=== PATIENT | female | born 1990 | race Hispanic/Latino ===

== ENCOUNTER 2022-08-18 20:58 | Emergency (ER) | payer MEDICAID ==
[~2022-08-18] VITALS: Ht 165.1 cm; Wt 64.0 kg
[2022-08-18 21:53] LABS: BASOPHILS % (AUTO) 0.7 % (0.0-5.0); LYMPHOCYTES % (AUTO) 16.1 % (21.0-51.0); MEAN CORPUSCULAR HEMOGLOBIN 28.7 pg (27.0-33.0); MEAN CORPUSCULAR HGB CONC 32.9 g/dL (32.0-36.0); MEAN CORPUSCULAR VOLUME 87.2 fL (79-99); MONOCYTES % (AUTO) 8.3 % (3.0-13.0); NEUTROPHILS % (AUTO) 68.6 % (40.0-77.0); PLATELET COUNT (AUTO) 223 K/uL (130-400); RED BLOOD CELL COUNT(AUTO) 4.36 MIL/uL (4.00-5.50); RED CELL DISTRIBUTION WIDTH 13.3 % (11.0-15.5); WHITE BLOOD COUNT (AUTO) 7.4 K/uL (4.8-10.8)
[2022-08-18 22:03] LABS: CREATININE 0.9 mg/dL (0.5-1.5); POTASSIUM 3.3 mmol/L (3.5-5.1)
[2022-08-18 22:04] LABS: INR 0.96 (0.85-1.15); PROTHROMBIN TIME 10.5 SEC (9.6-11.6)
[2022-08-18 22:05] LABS: PARTIAL THROMBOPLASTIN TIME 28.2 SEC (26.3-35.5)
[2022-08-18 22:08] LABS: ALBUMIN 3.9 g/dL (3.5-5.0); MAGNESIUM 1.8 mg/dL (1.80-2.40)
[2022-08-18] MEDS ORDERED: 0.9%NACL 1000ML 2,000 ML IV ONE (22:30)
[2022-08-18] MEDS ORDERED: IOHEXOL 350 MG/ML 100ML INFUS..BTL IV ONE (23:41)
[2022-08-19] MEDS ORDERED: LACTATED RINGERS 1000ML 1,000 ML IV ONE
[2022-08-19 03:01] VITALS: BP 113/80
== END 2022-08-19 03:20 ==
LOC: EDH 20:58
DX: E86.0 Dehydration (principal); I95.9 Hypotension, unspecified
CPT/HCPCS: 99285; 96360; 71275; 71045; 82550; 83735; 84484; 80053; 84703; 85025; 85378; 85610; 85730; 87040 ×2; 83605; 36415 ×2; 93005; 96361; J7030; Q9967; J7120

== ENCOUNTER 2024-01-05 05:21 | Emergency (ER) | payer SELFPAY ==
[~2024-01-05] VITALS: Ht 162.6 cm; Wt 63.5 kg
[2024-01-05 05:40] LABS: BASOPHILS # (AUTO) 0.06 K/uL (0.00-0.20); BASOPHILS % (AUTO) 0.6 % (0.0-5.0); EOSINOPHILS # (AUTO) 0.19 K/uL (0.00-0.70); HEMATOCRIT 38.2 % (36-48); IMMATURE GRANULOCYTE ABSOLUTE 0.04 K/uL (0-1); LYMPHOCYTES # (AUTO) 2.1 K/uL (1.0-4.8); LYMPHOCYTES % (AUTO) 22.1 % (21.0-51.0); MEAN CORPUSCULAR HEMOGLOBIN 26.3 pg (27.0-33.0); MEAN CORPUSCULAR HGB CONC 31.9 g/dL (32.0-36.0); MEAN CORPUSCULAR VOLUME 82.5 fL (79-99); MONOCYTES # (AUTO) 0.3 K/uL (0.1-1.0); MONOCYTES % (AUTO) 3.6 % (3.0-13.0); NEUTROPHILS # (AUTO) 6.7 K/uL (1.8-7.7); NEUTROPHILS % (AUTO) 71.3 % (40.0-77.0); PLATELET COUNT (AUTO) 324 K/uL (130-400); RED BLOOD CELL COUNT(AUTO) 4.63 MIL/uL (4.00-5.50); RED CELL DISTRIBUTION WIDTH 13.9 % (11.0-15.5); WHITE BLOOD COUNT (AUTO) 9.5 K/uL (4.8-10.8)
[2024-01-05 05:43] LABS: APPEARANCE,URINE CLEAR (CLEAR); BILIRUBIN,URINE NEGATIVE (NEGATIVE); COLOR,URINE COLORLESS (YELLOW); GLUCOSE, URINE (UA) NEGATIVE (NEGATIVE); KETONES,URINE NEGATIVE (NEGATIVE); LEUKOCYTE ESTERASE ,URINE 25 Leu/uL (NEGATIVE); NITRATE,URINE NEGATIVE (NEGATIVE); OCCULT BLOOD,URINE NEGATIVE (NEGATIVE); PH,URINE 5.5 (5.0-8.0); PROTEIN,URINE NEGATIVE (NEGATIVE); UROBILINOGEN,URINE 0.2 mg/dL (0.2-1.0)
[2024-01-05 05:47] LABS: ADD UA MICROSCOPIC YES
[2024-01-05 05:48] LABS: BACTERIA,URINE FEW /HPF (None Seen); MUCUS,URINE RARE LPF (None Seen); RBC,URINE 0-1 /HPF (0-1); SQUAMOUS EPITHELIAL CELL,UR RARE /HPF (0-2)
[2024-01-05 05:49] LABS: CARBON DIOXIDE 26 mmol/L (21-32); CHLORIDE 105 mmol/L (101-111); CREATININE 0.7 mg/dL (0.5-1.0); GLOMERULAR FILTR. RATE CALC 119 mL/min (>90); GLUCOSE,RANDOM 102 mg/dL (70-105); POTASSIUM 4.3 mmol/L (3.5-5.1); SODIUM SERUM 140 mmol/L (136-145); UREA NITROGEN, BLOOD 9 mg/dL (7-18)
[2024-01-05 05:51] LABS: AMPHET/METH SCREEN,URINE NEGATIVE (NEGATIVE); BARBITURATE SCREEN, URINE NEGATIVE (NEGATIVE); BENZODIAZEPINES SCREEN,URINE NEGATIVE (NEGATIVE); CANNABINOID SCREEN,URINE NEGATIVE (NEGATIVE); COCAINE SCREEN,URINE POSITIVE (NEGATIVE); OPIATE SCREEN,URINE NEGATIVE (NEGATIVE); PHENCYCLIDINE SCREEN,URINE NEGATIVE (NEGATIVE)
[2024-01-05 05:53] LABS: ALCOHOL, BLOOD 268 mg/dL (0-10)
[2024-01-05 05:54] LABS: ACETAMINOPHEN < 1 mcg/mL (10-30); SALICYLATE < 2.8 mg/dL (2.8-20.0)
[2024-01-05 19:21] VITALS: BP 127/78; PULSE 80; RESP 16; TEMP 98.2; O2SAT 100
== END 2024-01-05 20:25 | disposition home or self-care (01) ==
LOC: EDH 05:21
DX: F10.129 Alcohol abuse with intoxication, unspecified (principal); F14.10 Cocaine abuse, uncomplicated; R45.851 Suicidal ideations; Z79.899 Other long term (current) drug therapy
CPT/HCPCS: 99285; 80048; 80305; 85025; 36415; 81001; G0481

== ENCOUNTER 2024-07-01 21:59 | Emergency (ER) | payer OTHER ==
[~2024-07-01] VITALS: Ht 167.6 cm; Wt 61.2 kg
[2024-07-01] MEDS: 0.9%NACL 1000ML 1,000 ML IV ONE (22:46)
[2024-07-01 22:56] LABS: BASOPHILS # (AUTO) 0.06 K/uL (0.00-0.20); BASOPHILS % (AUTO) 0.7 % (0.0-5.0); EOSINOPHILS # (AUTO) 0.04 K/uL (0.00-0.70); EOSINOPHILS % (AUTO) 0.5 % (0.0-8.0); HEMATOCRIT 35.2 % (36-48); IMMATURE GRANULOCYTE ABSOLUTE 0.03 K/uL (0-1); LYMPHOCYTES # (AUTO) 2.1 K/uL (1.0-4.8); LYMPHOCYTES % (AUTO) 25.6 % (21.0-51.0); MEAN CORPUSCULAR HEMOGLOBIN 27.1 pg (27.0-33.0); MEAN CORPUSCULAR HGB CONC 32.4 g/dL (32.0-36.0); MEAN CORPUSCULAR VOLUME 83.8 fL (79-99); MONOCYTES # (AUTO) 0.5 K/uL (0.1-1.0); MONOCYTES % (AUTO) 5.7 % (3.0-13.0); NEUTROPHILS # (AUTO) 5.4 K/uL (1.8-7.7); NEUTROPHILS % (AUTO) 67.1 % (40.0-77.0); PLATELET COUNT (AUTO) 288 K/uL (130-400); RED CELL DISTRIBUTION WIDTH 14.1 % (11.0-15.5); WHITE BLOOD COUNT (AUTO) 8.1 K/uL (4.8-10.8)
[2024-07-01 23:00] VITALS: BP 120/67; PULSE 117; RESP 20; TEMP 98.5; O2SAT 98
[2024-07-01 23:11] LABS: CARBON DIOXIDE 29 mmol/L (21-32); CHLORIDE 101 mmol/L (101-111); CREATININE 0.6 mg/dL (0.5-1.0); GLOMERULAR FILTR. RATE CALC 122 mL/min (>90); GLUCOSE,RANDOM 112 mg/dL (70-105); POTASSIUM 3.2 mmol/L (3.5-5.1); SODIUM SERUM 138 mmol/L (136-145); UREA NITROGEN, BLOOD 7 mg/dL (7-18)
[2024-07-01 23:17] LABS: ALCOHOL, BLOOD 309 mg/dL (0-10); CREATINE KINASE, TOTAL 208 U/L (21-232)
[2024-07-01 23:20] LABS: ACETAMINOPHEN < 1 mcg/mL (10-30); SALICYLATE < 2.8 mg/dL (2.8-20.0)
--- NOTE | 2024-07-01 23:39 | NUR ---
PATIENT VOICED WANTING TO LEAVE AGAINST MEDICAL ADVICE, ATTEMPTED TO EXPLAIN THE PROCESS AND PLAN OF CARE. PATIENT STATED, "I DON'T WANT TO BE HERE ANYMORE, THE IV FLUIDS FINISHED, I WANT TO GO HOME WITH MY BROTHER THAT IS HERE WAITING FOR ME. I AM A GROWN ADULT AND CAN MAKE MY OWN DECISIONS." PIV REMOVED AND AMA FORM SIGNED AT THIS TIME. ED CLOTHING CUTTER AND ED CHARGE MADE AWARE AT THIS TIME./MIKA
--- NOTE | 2024-07-01 23:51 | NUR ---
[facility] MADE AWARE AT THIS TIME OF PATIENT LEAVING./IMKA
--- NOTE | 2024-07-02 01:20 | ERN ---
ED Note History of Present Illness Stated Complaint: SUICIDAL IDEATION Chief Complaint: Suicidal Ideation Time Seen by MD: 22:14 Time Seen by Midlevel: 22:14 Dictation: The patient is a 34-year-old female with no past medical history who presents to the emergency department via EMS for psychiatric evaluation. Patient reports she did a bump of cocaine for the 1st time in a long time. Reports she is seeking help for drug addiction. Patient currently denies any suicidal or homicidal ideations. Denies ever having suicidal or homicidal ideations. Patient reports that occasionally she wakes up and hears music but denies any other type of hallucinations. Patient currently denies any chest pain, abdominal pain, nausea or vomiting. Denies fevers. Patient has no other complaints. Allergies: Coded Allergies: No Known Drug Allergies (Verified Allergy, Unknown, 10/29/13) Past Medical History Past Medical History: Anxiety, Bipolar Surgical History: Unknown Social History: Other RN Note Reviewed/Agreed w/PFSH: Yes Review of System Dictation Constitutional: Negative for fever,chills, and weight loss Eyes: Negative for injury, pain,redness, and discharge ENT: Negative for injury,pain or swelling Cardiovascular: Negative for chest pain, palpitations, and edema Respiratory: Negative for shortness of breath, cough, and wheezing, Abdomen/GI: Negative for abdominal pain, nausea, vomiting, diarrhea, and constipation Back: Negative for injury and pain : Negative for injury, bleeding and discharge MS/Extremity: Negative for injury and deformity Skin: Negative for rash, and discoloration Neuro: Negative for headache, weakness, numbness, tingling, and seizure Psych: Negative for suicide ideation, homicidal ideation, positive for hallucinations Initial Vital Sign VS Vital Signs Date Time Temp Pulse Resp B/P (MAP) Pulse Ox O2 Delivery O2 Flow Rate FiO2 07/01/24 22:08 99.0 122 22 112/56 98 Room Air 0 07/01/24 22:12 21 Physical Exam Dictation Vital Signs reviewed General Appearance: Alert, oriented x 3, no acute distress, well developed, nourished. Head and Face: non-traumatic. Eyes: PERRL, pink conjunctivas, eyelid no trauma, anterior chamber with arcus senilis. Ears: Pinnas intact and no signs of trauma or erythema ear canals clear and no discharge TM no erythema Nose: No discharge, no bleeding. Oropharynx: Mouth normal, tongue pink. pharynx clear,no erythema, tonsils no exudates, no abscesses noted, mucous membrane moist Neck: Supple, non-tender, no thyromegaly, no masses, no JVD, no bruits Breast:Deferred Chest:No tenderness, no crepitus, no paradoxical movement, no retractions Lungs:Clear, well-ventilated, symmetric, no rales, no wheezing, no rhonchi, no stridor, good breath sounds bilaterally Heart: Regular rate, regular rhythm, no murmur, no gallops Vascular: no peripheral edema, Abdomen: Soft, positive bowel sounds, nondistended, no guarding, nontender, no rebound, no masses no hepatomegaly, no splenomegaly, no Alvarado's sign, no hernias. Rectal: Deferred Genital: Deferred Neurological: Normal speech, motor function intact, sensory function intact Musculoskeletal: Neck nontender, full range of motion, back nontender, full range of motion, Extremities: nontender, full range of motion Skin: Color pink, dry, no turgor, no rash, no lacerations, no abrasions, no contusions. Lymphatic: Deferred Results (Laboratory/Radiology) Laboratory/Radiology Laboratory Tests Test 07/01/24 22:46 White Blood Count 8.1 K/uL (4.8-10.8) Red Blood Count 4.20 MIL/uL (4.00-5.50) Hemoglobin 11.4 g/dL (12.0-16.0) L Hematocrit 35.2 % (36-48) L Mean Corpuscular Volume 83.8 fL (79-99) Mean Corpuscular Hemoglobin 27.1 pg (27.0-33.0) Mean Corpuscular Hemoglobin Concent 32.4 g/dL (32.0-36.0) Red Cell Distribution Width 14.1 % (11.0-15.5) Platelet Count 288 K/uL (130-400) Mean Platelet Volume 8.7 fL (7.5-10.5) Immature Granulocyte % (Auto) 0.4 % (0-1) Neutrophils (%) (Auto) 67.1 % (40.0-77.0) Lymphocytes (%) (Auto) 25.6 % (21.0-51.0) Monocytes (%) (Auto) 5.7 % (3.0-13.0) Eosinophils (%) (Auto) 0.5 % (0.0-8.0) Basophils (%) (Auto) 0.7 % (0.0-5.0) Neutrophils # (Auto) 5.4 K/uL (1.8-7.7) Lymphocytes # (Auto) 2.1 K/uL (1.0-4.8) Monocytes # (Auto) 0.5 K/uL (0.1-1.0) Eosinophils # (Auto) 0.04 K/uL (0.00-0.70) Basophils # (Auto) 0.06 K/uL (0.00-0.20) Absolute Immature Granulocyte (auto 0.03 K/uL (0-1) Nucleated Red Blood Cells 0.0 % (0.0-0.19) Sodium Level 138 mmol/L (136-145) Potassium Level 3.2 mmol/L (3.5-5.1) L Chloride Level 101 mmol/L (101-111) Carbon Dioxide Level 29 mmol/L (21-32) Blood Urea Nitrogen 7 mg/dL (7-18) Creatinine 0.6 mg/dL (0.5-1.0) Glomerular Filtration Rate Calc 122 mL/min (>90) Random Glucose 112 mg/dL (70-105) H Total Calcium 8.3 mg/dL (8.5-10.1) L Total Creatine Kinase 208 U/L (21-232) # Troponin I High Sensitivity < 4 ng/L (4-50) L Serum Test, Qualitative NEGATIVE (NEGATIVE) Salicylates Level < 2.8 mg/dL (2.8-20.0) L Acetaminophen Level < 1 mcg/mL (10-30) L Serum Alcohol 309 mg/dL (0-10) H Labs Reviewed?: Yes EKG: (+) rhythm (Sinus rhythm) EKG Comment: Date:07/01/2024 Time:2250 Ventricular rate:95 SC interval:143 QRS duration:95 QT/QTc:372 EKG interpretation: Sinus rhythm Reviewed by ED Attending no STEMI ED Course ED Course Orders Procedure Category Date Status Time Cbc With Differential LAB 07/01/24 Complete 22:30 Alcohol, Blood LAB 07/01/24 Complete 22:30 Salicylate LAB 07/01/24 Complete 22:30 Acetaminophen LAB 07/01/24 Complete 22:30 Testing, LAB 07/01/24 Complete Serum Hcg 22:30 12 Lead Ekg Tracing- EKG 07/01/24 Logged Technical 22:30 Creatine Kinase, Total LAB 07/01/24 Complete 22:30 Basic Metabolic Panel LAB 07/01/24 Complete 22:30 Troponin I High LAB 07/01/24 Complete Sensitivity 22:30 0.9%Nacl 1000ml (Ns PHA 07/01/24 Complete 1000ml) 22:30 Current Medications Medications (Trade) Dose Ordered Sig/Keisha Route PRN Reason Start Time Stop Time Status Last Admin Dose Admin Sodium Chloride 1,000 ml @ 0 mls/hr ONCE ONCE IV 07/01/24 22:30 07/01/24 22:35 DC 07/01/24 22:46 Vital Signs Date Time Temp Pulse Resp B/P (MAP) Pulse Ox O2 Delivery O2 Flow Rate FiO2 07/01/24 23:00 98.4 117 20 120/67 98 Room Air* 0 21 07/01/24 22:12 99.0 121 18 121/64 98 Room Air* 0 21 07/01/24 22:08 99.0 122 22 112/56 98 Room Air 0 Medical Decision Making MDM The patient is a 34-year-old female with no past medical history who presents to the emergency department via EMS for psychiatric evaluation. Patient reports she did a bump of cocaine for the 1st time in a long time. Reports she is seeking help for drug addiction. Patient currently denies any suicidal or homicidal ideations. Denies ever having suicidal or homicidal ideations. Patient reports that occasionally she wakes up and hears music but denies any other type of hallucinations. Patient currently denies any chest pain, abdominal pain, nausea or vomiting. Denies fevers. Patient has no other complaints. Was informed by the staff that patient eloped. [place] was contacted by nursing staff. DX & DISP Disposition: AMA Departure Condition: Stable Referrals: SELF,REFERRAL (PCP) COLEMAN CHEN Jul 02, 2024 01:20
--- NOTE | 2024-07-02 06:34 | EKG ---
[facility] Test Date: 2024-07-01 Test Time: 22:51:15 Pat Name: RICHARD MCMANUS Department: ED Room: Gender: F Last Puller: [id number] : 1990 Requested By: COLEMAN CHEN Order Number: [id number] Reading MD: Roberth Howe Measurements Intervals [place] Rate: 95 P: 49 FL: 143 QRS: -45 QRSD: 95 T: 27 QT: 372 QTc: 468 Interpretive Statements Sinus rhythm Low voltage, precordial leads Consider anterior infarct Compared to ECG 08/18/2022 22:48:43 Myocardial infarct finding now present Electronically Signed On 07-03-2024 12:45:41 [employer] by Roberth Howe Please click the below link to view image of tracing.
== END 2024-07-01 23:53 | disposition left against medical advice (07) ==
LOC: EDH 21:59
DX: R45.851 Suicidal ideations (principal); F31.9 Bipolar disorder, unspecified
CPT/HCPCS: 99284; 96360; 82550; 84484; 80048; 84703; 85025; 36415; 93005; G0481; J7030